=== PATIENT | male | born 1985 | race Two or more races ===

== ENCOUNTER 2018-07-05 09:10 | Emergency (ER) | payer OTHER ==
[~2018-07-05] VITALS: Ht 177.8 cm; Wt 81.6 kg
== END 2018-07-05 12:12 | disposition home or self-care (01) ==
LOC: ER 09:10
DX: B34.9 Viral infection, unspecified (principal)

== ENCOUNTER 2020-02-21 21:08 | Emergency (ER) | payer OTHER ==
[~2020-02-21] VITALS: Ht 170.2 cm; Wt 68.0 kg
== END 2020-02-22 05:09 | disposition home or self-care (01) ==
LOC: ER 21:08
DX: F10.288 Alcohol dependence with other alcohol-induced disorder (principal); F41.0 Panic disorder [episodic paroxysmal anxiety]; R73.9 Hyperglycemia, unspecified; T50.995A Adverse effect of other drugs, medicaments and biological substances, initial encounter; Y92.89 Other specified places as the place of occurrence of the external cause